=== PATIENT | male | born 1960 | race Caucasian/White ===

== ENCOUNTER 2017-06-07 08:58 | Day surgery (SDC) | payer MEDICAID, OTHER ==
[2017-06-07] MEDS ORDERED: Sodium Chloride 0.9% 1,000 ML IV SCH (09:30)
[2017-06-07] MEDS ORDERED: Midazolam 1 MG/ML 2 ML SDV ONE (09:53)
[2017-06-07] MEDS ORDERED: fentaNYL 100 MCG/2 ML SDV ONE (09:53)
[2017-06-07] MEDS ORDERED: Propofol 200 MG/20 ML SDV ONE (09:53)
[2017-06-07 12:51] VITALS: BP 112/69
--- NOTE | 2017-06-08 11:42 | OR ---
DATE OF PROCEDURE: 06/07/2017 PROCEDURE: Colonoscopy. FINDINGS: 1. Cecal polyp, approximately 5 mm, completely removed using cold biopsy forceps. 2. Rectal polyp #1, approximately 5 mm, completely removed using cold biopsy forceps and rectal polyp #2, approximately 1 cm, completely removed using hot snare. COMPLICATIONS: None. DROP SHIPMENT CLERK: None. PREOPERATIVE DIAGNOSIS: History of colon polyps. POSTOPERATIVE DIAGNOSIS: History of colon polyps. RISKS: Risks, benefits, alternatives, limitations including, but not limited to infection, bleeding, and perforation were explained to the patient and they wished to proceed. PROCEDURE IN DETAIL: The patient was placed in left lateral decubitus position. Digital rectal exam was performed without abnormality. Scope was introduced and advanced atraumatically to the ileocecal valve. The scope was brought back to the ascending, transverse, descending colon, and retroflexed. The aforementioned polyps were identified and completely removed as described as above. No masses. No old or new blood. No diverticulosis. The patient tolerated the procedure well. Josias Owen MD /[id number]
== END 2017-06-07 12:25 | disposition home or self-care (01) ==
LOC: JP.SDS 08:58
PROVIDERS: ATTEND Surgery
DX: Z12.11 Encounter for screening for malignant neoplasm of colon (principal); D12.0 Benign neoplasm of cecum; D12.8 Benign neoplasm of rectum; K62.1 Rectal polyp; Z86.010 Personal history of colon polyps; Z88.8 Allergy status to other drugs, medicaments and biological substances
CPT/HCPCS: 45380; 45385; J2250; J2704; J3010; J7040; 88305

== ENCOUNTER 2019-02-20 08:45 | Day surgery (SDC) | payer OTHER ==
[2019-02-20] MEDS ORDERED: Midazolam 1 MG/ML 2 ML SDV ONE (09:30)
[2019-02-20] MEDS ORDERED: Propofol 200 MG/20 ML SDV ONE (09:30)
[2019-02-20] MEDS ORDERED: fentaNYL 100 MCG/2 ML SDV ONE (09:30)
[2019-02-20 12:17] VITALS: BP 107/66
[2019-02-20] MEDS: Sodium Chloride 0.9% 1,000 ML IV SCH (13:18)
--- NOTE | 2019-02-21 07:56 | OR ---
DATE OF PROCEDURE: 02/20/2019 SURGEON: Josias Owen MD PROCEDURE: Colonoscopy. FINDINGS: Cecal polyp, approximately 8 mm, completely removed using cold snare. COMPLICATIONS: None. GIS INSTRUCTOR: None. ANESTHESIA: MAC. PREOPERATIVE DIAGNOSIS: History of colon polyps. POSTOPERATIVE DIAGNOSIS: History of colon polyps. RISKS: Risks, benefits, alternatives, and limitations including, but not limited to infection, bleeding, and perforation were explained to the patient, who wished to proceed. PROCEDURE IN DETAIL: The patient was placed in left lateral decubitus position. Digital rectal exam was performed without abnormality. The scope was introduced and advanced atraumatically to the ileocecal valve. The scope was brought back through the ascending, transverse, descending colon, and retroflexed. Within the cecum itself, there was the aforementioned polyp, which was completely removed using cold snare. No abnormal bleeding was noted during removal. The scope was brought back as described and retroflexed. No other abnormalities. The patient tolerated the procedure well. Josias Owen MD /[id number]
== END 2019-02-20 12:50 | disposition home or self-care (01) ==
LOC: JP.SDS 08:45
PROVIDERS: ATTEND Surgery
DX: Z12.11 Encounter for screening for malignant neoplasm of colon (principal); D12.0 Benign neoplasm of cecum; Z86.010 Personal history of colon polyps
CPT/HCPCS: 45385; 88305; J2250; J2704; J3010; J7030

== ENCOUNTER 2020-12-02 07:00 | Day surgery (SDC) | payer OTHER ==
[2020-12-02] MEDS ORDERED: fentaNYL 100 MCG/2 ML SDV ONE (07:25)
[2020-12-02] MEDS ORDERED: Midazolam 1 MG/ML 2 ML SDV ONE (07:25)
[2020-12-02] MEDS ORDERED: Propofol 200 MG/20 ML SDV ONE (07:26)
[2020-12-02] MEDS ORDERED: Sodium Chloride 0.9% 1,000 ML IV SCH (07:30)
[2020-12-02 10:00] VITALS: BP 108/63; PULSE 73
--- NOTE | 2020-12-02 17:21 | PROC ---
DATE OF PROCEDURE: SURGEON: Josias Owen MD PROCEDURE: Colonoscopy. FINDINGS: Ascending colon polyp, approximately 1 cm, completely removed using hot snare wire device. COMPLICATION: None. COMPLAINT SUPERVISOR: None. PREOPERATIVE DIAGNOSIS: Screening colonoscopy. POSTOPERATIVE DIAGNOSIS: Screening colonoscopy. RISKS: Risks, benefits, alternatives, and limitations including, but not limited to, infection, bleeding, and perforation were explained to the patient along with false positives and false negatives. PROCEDURE IN DETAIL: The patient was placed in left lateral decubitus position. Digital rectal exam was performed without abnormality. Scope was introduced and advanced atraumatically to the ileocecal valve. A photo was taken. The scope was brought back to the ascending, transverse, descending colon, and retroflexed. No evidence of old or new blood. No masses. No evidence of colitis. The aforementioned polyp was identified and completely removed. No abnormal bleeding after removal was noted. No abnormalities on retroflexion. The prep was acceptable, approximately 95% luminal surface could be seen. Greater than 8 minutes was spent removing the scope. The patient tolerated the procedure well. Josias Owen MD /[id number]
== END 2020-12-02 10:20 | disposition home or self-care (01) ==
LOC: JP.SDS 07:00
PROVIDERS: ATTEND Surgery
DX: Z12.11 Encounter for screening for malignant neoplasm of colon (principal); D12.2 Benign neoplasm of ascending colon; Z88.5 Allergy status to narcotic agent
CPT/HCPCS: 45385; J2250; J2704; J3010; J7030

== ENCOUNTER 2021-02-18 11:37 | Emergency (ER) | payer OTHER ==
[2021-02-18] MEDS ORDERED: Aspirin 81 MG Tab.Chew PO ONE (11:52)
[2021-02-18] MEDS ORDERED: Nitroglycerin 0.4 MG Tab.SL SL ONE (11:55)
[2021-02-18] MEDS ORDERED: Heparin Sodium 5,000 Units/ML Vial IVPUSH ONE (12:10)
[2021-02-18] MEDS ORDERED: Heparin Sodium/D5W 25,000 UNITS/500 ML BAG IV SCH (12:15)
--- NOTE | 2021-02-18 12:23 | EDM.PDOC ---
ED HPI GENERAL MEDICAL PROBLEM - General Chief Complaint: Cardiovascular Problem Stated Complaint: CARDIO Time Seen by Provider: 02/18/21 12:00 Source of Information: Reports: Patient, Family History Limitations: Reports: No Limitations - History of Present Illness INITIAL COMMENTS - FREE TEXT/NARRATIVE: 60-year-old male, usually healthy has been having increasing angina like s ymptoms with activity, especially when his heart rate gets to 120-130. He takes 81 mg of aspirin daily and Linnette for allergies otherwise is healthy. He saw his primary provider, they set him up for a nuclear stress test which she had today and it was strongly positive. He also developed persistent mid back pain with the test. They called in from home and told him to return to the emergency room. Denies shortness of breath, significant diaphoresis or nausea or vomiting. Onset: Unknown/Unsure Duration: Chronic (Increasing over the past several weeks) Location: Reports: Back Associated Symptoms: Reports: No Other Symptoms - Related Data Allergies Allergy/AdvReac Type Severity Reaction Status Date / Time morphine Allergy Itching Verified 02/18/21 11:56 Home Meds: Home Meds Fexofenadine HCl [Linnette Allergy] 60 mg PO DAILY PRN 02/18/19 [History] Aspirin 81 mg PO DAILY 02/17/21 [History] Past Medical History HEENT History: Reports: Epistaxis, Impaired Vision, Other (See Below) Other HEENT History: bignin positional vertigo Cardiovascular History: Reports: None Respiratory History: Reports: Sleep Apnea Gastrointestinal History: Reports: Colon Polyp, Hemorrhoids Genitourinary History: Reports: None Musculoskeletal History: Reports: Neck Pain, Chronic Neurological History: Reports: Vertigo Other Neuro History: benign postional vertigo Psychiatric History: Reports: None Endocrine/Metabolic History: Reports: None Hematologic History: Reports: None Immunologic History: Reports: None Oncologic (Cancer) History: Reports: None Dermatologic History: Reports: None - Infectious Disease History Infectious Disease History: Reports: Chicken Pox - Past Surgical History Head Surgeries/Procedures: Reports: None HEENT Surgical History: Reports: LASIK Cardiovascular Surgical History: Reports: None Respiratory Surgical History: Reports: None GI Surgical History: Reports: Colonoscopy, Polypectomy Endocrine Surgical History: Reports: None Neurological Surgical History: Reports: None Musculoskeletal Surgical History: Reports: Shoulder Surgery, Other (See Below) Other Musculoskeletal Surgeries/Procedures:: right bicep tear at elbow lost intercostal muscles Oncologic Surgical History: Reports: None Dermatological Surgical History: Reports: None Social & Family History - Family History Family Medical History: No Pertinent Family History - Tobacco Use Tobacco Use Status *Q: Never Tobacco User Second Hand Smoke Exposure: No - Caffeine Use Caffeine Use: Reports: Tea - Recreational Drug Use Recreational Drug Use: No ED ROS GENERAL - Review of Systems Review Of Systems: See Below Constitutional: Denies: Fever, Chills Respiratory: Denies: Shortness of Breath Cardiovascular: Reports: Chest Pain GI/Abdominal: Reports: No Symptoms : Reports: No Symptoms Musculoskeletal: Reports: Back Pain ED EXAM, GENERAL - Physical Exam Exam: See Below Exam Limited By: No Limitations General Appearance: Alert, No Apparent Distress Head: Atraumatic Respiratory/Chest: Lungs Clear Cardiovascular: Regular Rate, Rhythm. No: Tachycardia, Extra Beats Extremities: Normal Inspection. No: Pedal Edema Neurological: Alert, Oriented Psychiatric: Normal Affect, Normal Mood Skin Exam: Warm, Dry Course - Vital Signs Last Recorded V/S: Last Vital Signs Temp 98 F 02/18/21 12:07 Pulse 51 L 02/18/21 12:25 Resp 12 02/18/21 12:25 BP 130/69 02/18/21 12:25 Pulse Ox 96 02/18/21 12:25 - Orders/Labs/Meds Orders: Active Orders 24 hr Category Date Time Status EKG 12 Lead [EK] Routine Ther 02/18/21 11:56 Ordered Labs: Laboratory Tests 02/18/21 02/18/21 Range/Units 11:46 11:46 WBC 5.3 (4.5-11.0) K/uL RBC 4.92 (4.30-5.90) M/uL Hgb 15.1 H (12.0-15.0) g/dL Hct 45.1 (40.0-54.0) % MCV 92 (80-98) fL MCH 31 (27-31) pg MCHC 34 (32-36) % Plt Count 248 (150-400) K/uL Neut % (Auto) 61 (36-66) % Lymph % (Auto) 27 (24-44) % Sabine % (Auto) 8 H (2-6) % Eos % (Auto) 4 (2-4) % Baso % (Auto) 0 (0-1) % Sodium 144 (140-148) mmol/L Potassium 3.9 (3.6-5.2) mmol/L Chloride 105 (100-108) mmol/L Carbon Dioxide 30 (21-32) mmol/L Anion Gap 9.5 (5.0-14.0) mmol/L BUN 16 (7-18) mg/dL Creatinine 1.2 (0.8-1.3) mg/dL Est Cr Clr Drug Dosing TNP Estimated GFR (MDRD) > 60 (>60) Glucose 89 (74-106) mg/dL Calcium 9.3 (8.5-10.1) mg/dL Troponin I 0.023 (0.000-0.056) ng/mL Meds: Medications Discontinued Medications Generic Name Dose Route Start Last Admin Trade Name Papoq PRN Reason Stop Dose Admin Aspirin 324 mg 02/18/21 11:52 02/18/21 11:59 Aspirin 81 Mg Tab.Chew PO 02/18/21 11:53 324 mg ONETIME ONE Administration Heparin Sodium (Porcine) 5,000 units 02/18/21 12:10 02/18/21 12:16 Heparin Sodium 5,000 Units/Ml Vial IVPUSH 02/18/21 12:11 4,000 units ONETIME ONE Administration Heparin Sodium/Dextrose 25,000 units in 500 mls @ 16 mls/hr 02/18/21 12:15 02/18/21 12:33 Heparin 25,000 Units In D5w 500 Ml IV 800 units/hr TITRATE NATANAEL 16 mls/hr Administration Protocol 800 UNITS/HR Nitroglycerin 0.4 mg 02/18/21 11:55 02/18/21 12:00 Nitroglycerin 0.4 Mg Tab.Sl SL 02/18/21 11:56 0.4 mg ONETIME ONE Administration - Re-Assessments/Exams Free Text/Narrative Re-Assessment/Exam: 02/18/21 12:49 EKG was done on arrival which showed chest slight ST depression in V3 through V5, no elevation. 02/18/21 12:55 Sublingual nitroglycerin and 324 mg of chewable aspirin were given on arrival. His pain improved significantly. He remained very stable. I did get a call from [facility] radiology who was concerned about the result of the nuclear portion of the stress test. He felt there was some significant ischemia in the anterior wall and apex of the heart. This was discussed with Dr. Griffin, ER physician at [facility] in [place] and he kindly agreed to accept the patient for further evaluation. 4000 units of heparin bolus were given and the patient was continued on 800 units an hour drip in route. Departure - Departure Time of Disposition: 12:29 Disposition: DC/Tfer to Other 70 Reason for Transfer *Q: Other Clinical Impression: Acute coronary syndrome without high troponin Referrals: Derrell Daniels MD [Primary Care Provider] - Forms: ED Department Discharge Care Plan Goals: Patient is transferred urgently to [facility] for cardiology evaluation and treatment of worsening stable angina and acute coronary syndrome. Sepsis Event Note (ED) - Evaluation Sepsis Screening Result: No Definite Risk - Focused Exam Vital Signs: Vital Signs Temp Pulse Resp BP BP Pulse Ox 02/18/21 12:25 51 L 12 130/69 96 02/18/21 12:15 55 L 137/79 96 02/18/21 12:07 98 F 58 L 20 138/78 97 02/18/21 12:00 164/82 H 02/18/21 11:54 98 F 60 20 164/92 H 99 - My Orders Last 24 Hours: My Active Orders 02/18/21 11:56 EKG 12 Lead [EK] Routine - Assessment/Plan Last 24 Hours: My Active Orders 02/18/21 11:56 EKG 12 Lead [EK] Routine
[2021-02-18 12:45] VITALS: BP 130/69; PULSE 51
== END 2021-02-18 12:35 | disposition other institution (70) ==
LOC: JP.ED 11:37
DX: I24.9 Acute ischemic heart disease, unspecified (principal); Z88.5 Allergy status to narcotic agent; Z79.82 Long term (current) use of aspirin
CPT/HCPCS: 36415; 80048; 84484; 85025; 93005; 96374; 99285; A9270; J1644

== ENCOUNTER 2023-10-11 06:25 | Day surgery (SDC) | payer BC ==
[2023-10-11] MEDS ORDERED: fentaNYL 50 MCG/ML SDV ONE (06:57)
[2023-10-11] MEDS ORDERED: Propofol 200 MG/20 ML SDV ONE (06:57)
[2023-10-11] MEDS ORDERED: Midazolam 1 MG/ML 2 ML SDV ONE (06:57)
[2023-10-11] MEDS ORDERED: Sodium Chloride 0.9% 1,000 ML IV SCH (07:15)
[2023-10-11 08:22] VITALS: BP 84/58; PULSE 39
== END 2023-10-11 09:38 | disposition home or self-care (01) ==
LOC: JP.SDS 06:25
PROVIDERS: ATTEND Surgery
DX: Z12.11 Encounter for screening for malignant neoplasm of colon (principal); G47.33 Obstructive sleep apnea (adult) (pediatric); E78.5 Hyperlipidemia, unspecified
CPT/HCPCS: 45378; J2250; J2704; J3010; J7030